=== PATIENT | female | born 1955 | race Caucasian/White ===

== ENCOUNTER 2020-08-11 09:56 | Emergency (ER) | payer MEDICARE, SELFPAY ==
[2020-08-11] VITALS (8 sets, daily range): BP systolic 143–144; BP diastolic 66–81; PULSE 67–75; RESP 10–22; TEMP 36.4; O2SAT 97–100
--- NOTE | ~2020-08-11 | XR_ITS ---
EXAMINATION: XR knee LT 3V DATE: 08/11/2020 10:39 INDICATION: Left knee pain TECHNIQUE: Three views of the left knee were obtained. COMPARISON: None. FINDINGS: There is an anterior soft tissue laceration projecting at the level of the proximal tibia. Associated soft tissue gas is noted. Alignment is normal. No fracture or osteochondral lesion. There is mild tricompartmental osteoarthritis characterized by tiny marginal osteophytes. No joint effusion /synovitis. A tiny heterotopic ossification projecting lateral to the proximal fibula may reflect pr ior injury. IMPRESSION: 1. Soft tissue laceration without acute osseous abnormality. Reviewed, dictated and finalized at location A.
--- NOTE | ~2020-08-11 | XR_ITS ---
EXAMINATION: XR knee RT 3V DATE: 08/11/2020 10:39 INDICATION: Right knee pain TECHNIQUE: Three views of the right knee were obtained. COMPARISON: None. FINDINGS: Alignment is normal. No fracture or osteochondral lesion. Joint spaces are normal with no e rosions. No joint effusion/synovitis. Soft tissues are unremarkable. IMPRESSION: 1. No acute osseous abnormality. Reviewed, dictated and finalized at location A.
[2020-08-11] MEDS: ceFAZolin 2 GM/D5W 50 ML 2 GM/50 ML BAG IVPB (10:55)
[2020-08-11] MEDS: TETANUS,DIPHTHERIA,AC PERTUSSIS ADULT (0.5 ML) BOOSTRIX IM (10:56)
--- NOTE | 2020-08-11 12:45 | ED.GENADULT ---
HPI - General Adult General Chief complaint: Fall Stated complaint: FALL Time Seen by Provider: 08/11/20 10:11 Source: patient, family and RN notes reviewed Mode of arrival: EMS Limitations: no limitations History of Present Illness HPI narrative: Patient is a 65-year-old female who presents to emergency department after falling down 7 stairs. Patient sustained head injury and bilateral knee injuries related to this fall patient on arrival has a large laceration of the anterior left knee. Abrasions of the right anterior knee. Contusion of the forehead with abrasions of the face. Patient denies syncope loss of consciousness anticoagulant use. On arrival patient notes that her pain is well controlled. Patient notes that her tetanus is not up-to-date. Related Data Allergies Allergy/AdvReac Type Severity Reaction Status Date / Time No Known Allergies Allergy Verified 08/11/20 09:57 Review of Systems Review of Systems: All systems reviewed & are unremarkable except as noted in HPI and below PMFSH Social History Social History (Updated 08/11/20 @ 12:46 by Jordy Hernandez PA-C) Smoking status: Never smoker Exam Narrative: Exam Narrative: GENERAL: Well-appearing, well-nourished, and in no acute distress. HEAD: Normocephalic, hematoma and abrasions of the forehead EYES: PERRLA and EOMI. ENT: Nares clear, no rhinorrhea or epistaxis. Mucous membranes moist. NECK: Supple. No adenopathy or masses. CHEST: Clear to auscultation. No respiratory distress. No wheezes rales or rhonchi HEART: Regular rate and rhythm. No murmur heard. Normal peripheral pulses. ABDOMEN: Soft, nontender, nondistended, normal active bowel sounds. EXTREMITIES: Normal range of motion. No edema. Patient with large laceration of the anterior left knee extending into the deep tissues measuring 5 cm in length. Abrasions and tenderness to the anterior right knee. No cervical thoracic or lumbar tenderness SKIN: Warm, dry, no rash. NEURO: No focal deficits. Alert and oriented x3. Neurovascularly intact. Capillary refill less than 2 seconds. Cranial nerves II through XII grossly intact PSYCH: Normal mood and affect. Course Course Emergency Course: Patient evaluated in the emergency department for injuries related to a fall down the stairs patient's wound was closed in the emergency department she is resting comfortably in the room in no distress vital signs and ABCs intact she is denying any headache lightheadedness dizziness or neurologic symptoms patient had closure of the wound is noted discussion was made with orthopedic surgery who will follow the patient patient was made aware of the recommendations and discussion with the specialist services and agrees to be discharged and feels comfortable with discharge home Consultations Consultation #1: Discussed case with orthopedist Dr. Nino who would like the patient to be placed on Keflex for 10 days and will follow patient in clinic for movable of mak and reevaluation Date: 08/11/20 Time: 12:48 Vital Signs Vital signs: Vital Signs Temperature 97.5 F L 08/11/20 09:59 Pulse Rate 71 08/11/20 09:59 Respiratory Rate 20 08/11/20 09:59 Blood Pressure 144/81 H 08/11/20 09:59 Pulse Oximetry 100 08/11/20 09:59 Temperature 97.5 F L 08/11/20 09:59 Pulse Rate 70 08/11/20 11:19 Respiratory Rate 22 H 08/11/20 11:19 Blood Pressure 143/66 H 08/11/20 11:01 Pulse Oximetry 97 08/11/20 11:19 Procedures Laceration Laceration 1: Date: 08/11/20 Time: 12:49 Site: lower extremity Side (If applicable): left Size (cm): 6 Description: linear Depth: simple, single layer Local Anesthetic: lidocaine 1% Pre-repair: wound explored, irrigated and irrigated extensively ====== Skin Level ====== Skin layer closed with: mak Number of sutures: 21 ====== Subcutaneous Layer ====== Subcutaneous layer closed w
== END 2020-08-11 13:05 | disposition home or self-care (01) ==
PROVIDERS: Emergency Provider Emergency Medicine
DX: S81.012A Laceration without foreign body, left knee, initial encounter (principal); S09.90XA Unspecified injury of head, initial encounter; Z23 Encounter for immunization; W10.9XXA Fall (on) (from) unspecified stairs and steps, initial encounter
CPT/HCPCS: 12032; 73562; 90471; 90715; 96365; 96368; 99284; J0131; J0690